=== PATIENT | female | born 1965 ===

== ENCOUNTER 2024-06-20 00:15 | Emergency (ER) | payer OTHER ==
[2024-06-20] MEDS: Ondansetron 4 MG Tab.DIS PO ONE (00:34)
[2024-06-20 01:01] LABS: BASOPHILS ABSOLUTE AUTO 0.03 K/uL (0.00-0.20); BASOPHILS PERCENT AUTO 0.3 % (0.0-2.0); EOSINOPHILS ABSOLUTE AUTO 0.04 K/uL (0.00-0.50); EOSINOPHILS PERCENT AUTO 0.5 % (0.0-5.0); HEMATOCRIT 40.9 % (34.0-46.0); HEMOGLOBIN 13.7 g/dL (11.7-15.5); IMMATURE GRAN ABSOLUTE AUTO 0.09 10^3/uL (0.00-0.04); LYMPHOCYTES ABSOLUTE AUTO 0.47 K/uL (0.50-3.50); LYMPHOCYTES PERCENT AUTO 5.4 % (10.0-50.0); MEAN CORPUSCULAR HEMOGLOBIN 29.7 pg (28.2-33.3); MEAN CORPUSCULAR HGB CONC 33.5 g/dL (31.7-36.0); MEAN CORPUSCULAR VOLUME 88.5 fL (84.0-98.0); MONOCYTES ABSOLUTE AUTO 0.95 K/uL (0.00-1.00); MONOCYTES PERCENT AUTO 10.9 % (2.0-14.0); NEUTROPHILS ABSOLUTE AUTO 7.15 K/uL (1.40-7.00); NEUTROPHILS PERCENT AUTO 81.9 % (45.0-80.0); PLATELET COUNT,PLT 230 K/uL (150-350); RED BLOOD CELL COUNT 4.62 M/uL (3.77-5.09); RED CELL DISTRIBUTION WIDTH 13.4 % (11.2-14.1); WHITE BLOOD CELL COUNT,WBC 8.7 K/uL (4.0-10.2)
[2024-06-20] MEDS: traMADol 50 MG Tab PO ONE (01:08)
[2024-06-20 01:13] LABS: ALBUMIN 3.8 g/dL (3.4-5.0); BILIRUBIN TOTAL 0.5 mg/dL (0.2-1.0); CALCIUM 8.7 mg/dL (8.5-10.1); CREATININE 0.89 mg/dL (0.51-1.17); EST CRCL DRUG DOSING (CG) 57.69 mL/min; POTASSIUM,K 3.6 mmol/L (3.5-5.1); PROTEIN TOTAL,TP 7.4 g/dL (6.4-8.2)
[2024-06-20] MEDS: Ketorolac 30 MG/ML SDV IM ONE (01:51)
[2024-06-20] MEDS: Take Home: traMADol 50 MG, 4 Tab Pack PO ONE (01:57)
[2024-06-20] MEDS: Take Home: Ondansetron 4 MG Tab.DIS, 5 Tab Pack PO ONE (01:57)
== END 2024-06-20 02:12 | disposition home or self-care (01) ==
LOC: LL.ED 00:15
DX: B34.9 Viral infection, unspecified (principal); I10 Essential (primary) hypertension; K21.9 Gastro-esophageal reflux disease without esophagitis; E66.9 Obesity, unspecified; Z88.0 Allergy status to penicillin; Z88.2 Allergy status to sulfonamides; Z68.42 Body mass index [BMI] 45.0-49.9, adult
CPT/HCPCS: 36415; 80053; 85025; 87428-QW; 96372; 99283; 99284; A9270-GY; J1885; Q0162

== ENCOUNTER 2025-01-08 17:35 | Emergency (ER) | payer OTHER ==
[2025-01-08] MEDS: [UNRECOGNIZED DRUG - OTHER] TOP ONE (18:51)
[2025-01-08] MEDS: Take Home: valACYclovir HCl 1 GM Tab, 6 Tab Pack PO ONE (18:52)
[2025-01-09] MEDS ORDERED: [UNRECOGNIZED DRUG - OTHER] TOP SCH (08:00)
[2025-01-09] MEDS ORDERED: Take Home: valACYclovir HCl 1 GM Tab, 6 Tab Pack PO SCH (08:00)
[2025-01-09] MEDS ORDERED: Take Home: valACYclovir HCl 1 GM Tab, 6 Tab Pack PO ONE (18:37)
[2025-01-09] MEDS ORDERED: [UNRECOGNIZED DRUG - OTHER] TOP ONE (18:37)
== END 2025-01-08 19:00 | disposition home or self-care (01) ==
LOC: LL.ED 17:35
DX: B02.9 Zoster without complications (principal); I10 Essential (primary) hypertension; K21.9 Gastro-esophageal reflux disease without esophagitis; E66.9 Obesity, unspecified; Z68.42 Body mass index [BMI] 45.0-49.9, adult; Z88.0 Allergy status to penicillin; Z88.2 Allergy status to sulfonamides; Z88.8 Allergy status to other drugs, medicaments and biological substances; Z79.899 Other long term (current) drug therapy
CPT/HCPCS: 99282; 99283; A9270-GY